=== PATIENT | female | born 1965 | race Caucasian/White ===

== ENCOUNTER 2018-09-02 20:01 | Emergency (ER) | payer OTHER ==
--- NOTE | 2018-09-02 20:51 | RAD REPORT ---
EXAM DESCRIPTION: RAD - Chest Single View - 09/02/2018 8:43 pm CLINICAL HISTORY: Bronchitis, shortness of breath, cough COMPARISON: January 2017 TECHNIQUE: AP portable chest image was obtained 2028 . FINDINGS: No peripheral mass or consolidation. Lung markings are not clearly different from comparis on. Heart and vasculature are normal. No measurable pleural effusion and no pneumothorax. No acute [place] abnormality seen. No acute aortic findings suspected. IMPRESSION: Lung markings are mildly prominent but not clearly different from comparison. No focal consolidation.
[2018-09-02] MEDS ORDERED: IBUPROFEN 400 MG TAB ONE (21:01)
[2018-09-02] MEDS ORDERED: ONDANSETRON 4 MG/2 ML VIAL ONE (21:02)
[2018-09-02] MEDS ORDERED: ACETAMINOPHEN 500 MG TAB ONE (21:02)
[2018-09-02] MEDS ORDERED: NA CHLORIDE 0.9% 2,000 ML ONE (21:02)
[2018-09-02 21:06] LABS: Absolute Lymphocytes (CBC) 0.4 K/uL (0.7-4.9); Absolute Monocytes 0.3 K/uL (0.1-1.3); Absolute Neutrophil 17.4 K/uL (1.8-8.0); Basophils % 0.1 % (0-1.3); Eosinophils % 0.1 % (0-4.4); Hematocrit 42.7 % (36.0-45.0); Lymphocytes % 2.1 % (15.3-44.8); MCH 29.8 pg (27.0-35.0); MCV 88.3 fL (80-100); Monocytes % 1.4 % (3.3-12.3); RBC Red Blood Cell Count 4.84 M/uL (3.86-4.86)
[2018-09-02 21:16] LABS: Potassium 4.2 mmol/L (3.5-5.1)
[2018-09-02 21:42] LABS: Platelet Estimate ADEQ; Urine White Blood Cell Casts OK
[2018-09-02 21:43] LABS: Blood Morphology Comment NOT SEEN (NOT SEEN)
[2018-09-02 21:45] LABS: Urine Bacteria NONE SEEN /HPF (<20); Urine Culture Reflex Order NOT NEEDED
[2018-09-02 21:53] LABS: Urine Blood 2+ (NEG); Urine Glucose NEGATIVE (NEG); Urine Protein NEGATIVE (NEG); Urine Specific Gravity 1.025 (1.005-1.030); Urine pH 5.5 (5.0-7.0)
--- NOTE | 2018-09-03 01:15 | ER ---
Nurse's Notes [facility] Name: Gabriela Cutris Age: 53 yrs Sex: Female : 1965 Arrival Date: 09/02/2018 Time: 20:03 Bed 7 Private MD: Beau Barrett E Diagnosis: Bronchitis, not specified as acute or chronic Presentation: 09/02 20:14 Presenting complaint: Patient states: Diagnosed with bronchitis yesterday by PCP and lp1 began steroids today; States fever of 103 today, aching to general body. Transition of care: patient was not received from another setting of care. Onset of symptoms was September 02, 2018. Risk Assessment: Do you want to hurt yourself or someone else? Patient reports no desire to harm self or others. Initial Sepsis Screen: Does the patient meet any 2 criteria? Temp <36.0*C (96.8*F)) or > 38.3*C (100.9*F). HR > 90 bpm. Yes. Care prior to arrival: None. 20:14 Method Of Arrival: Wheelchair lp1 20:14 Acuity: ANDREW 3 lp1 21:17 Initial Sepsis Screen: Does the patient have a suspected source of infection? Yes: tl2 Productive cough/pneumonia. Triage Assessment: 21:17 Respiratory: Onset: The symptoms/episode began/occurred yesterday, the patient has mild tl2 shortness of breath. [facility]: 20:16 LMP N/A - Irregular menses lp1 Historical: - Allergies: 20:18 Clindamycin; lp1 20:18 VANCOMYCIN AND DERIVATIVES; lp1 20:18 Augmentin; lp1 20:18 Anoro Ellipta; lp1 20:18 Codeine; lp1 20:18 IV contrast; lp1 20:18 Levaquin; lp1 20:18 Talwin; lp1 - Home Meds: 20:18 levothyroxine oral [Active]; Methylprednisolone Oral [Active]; Azithromycin Oral lp1 [Active]; albuterol sulfate 90 mcg/actuation Inhl HFAA 1 puff every 4-6 hours [Active]; albuterol sulfate 2.5 mg /3 mL (0.083 %) Inhl nebu 3 mL every 6 hours [Active]; Symbicort 160-4.5 mcg/actuation inhalation HFAA 2 puffs 2 times per day [Active]; - PMHx: 20:18 COPD; Hypothyroidism; Osteoarthritis; lp1 - PSHx: 20:18 back surgery; ; Tracheotomy; lp1 - Immunization history:: Adult Immunizations up to date. - Social history:: Smoking status: Patient/guardian denies using tobacco. - Ebola Screening: : No symptoms or risks identified at this time. Screenin:19 Abuse screen: Denies threats or abuse. Denies injuries from another. Nutritional lp1 screening: No deficits noted. Tuberculosis screening: No symptoms or risk factors identified. 21:17 Fall Risk None identified. tl2 Assessment: 20:50 General: Appears in no apparent distress. uncomfortable, Behavior is calm, cooperative, tl2 appropriate for age. Pain: Complains of pain in body aches. Neuro: Level of Consciousness is awake, alert, obeys commands, Oriented to person, place, time, situation. Cardiovascular: Denies chest pain, Rhythm is sinus tachycardia. Respiratory: Airway is patent Respiratory effort is even, unlabored, Respiratory pattern is regular, symmetrical, Breath sounds are clear bilaterally. GI: Reports nausea. : No signs and/or symptoms were reported regarding the genitourinary system. Derm: Skin is flushed. 21:16 Reassessment: Patient appears in no apparent distress at this time. Patient and/or tl2 family updated on plan of care and expected duration. Pain level reassessed. Patient is alert, oriented x 3, equal unlabored respirations, skin warm/dry/pink. Pt resting, fluids infusing. 22:00 Reassessment: IV in left hand is positional, will attempt to obtain additional access. tl2 22:29 Reassessment: Patient appears in no apparent distress at this time. Patient and/or tl2 family updated on plan of care and expected duration. Pain level reassessed. Patient is alert, oriented x 3, equal unlabored respirations, skin warm/dry/pink. Patient states feeling better. 09/03 00:10 Reassessment: Patient appears in no apparent distress at this time. Patient and/or tl2 family updated on plan of care and expected duration. Pain level reassessed. Patient is alert, oriented x 3, equal unlabored respirations, skin warm/dry/pink. pt verbalized understanding of discharge instructions, need for follow up and prescription usage Patient states feeling better. Patient states symptoms have improved. Vital Signs: 09/02 20:16 BP 120 / 69; Pulse 129; Resp 18; Temp 102.9(O); Pulse Ox 98% on R/A; Weight 127.01 kg; lp1 Height 5 ft. 5 in. (165.10 cm); Pain 8/10; 21:16 BP 125 / 68; Pulse 121; Resp 20; Pulse Ox 96% on R/A; tl2 22:00 BP 131 / 76; Pulse 111; Resp 20; Pulse Ox 95% on R/A; tl2 22:29 BP 118 / 58; Pulse 106; Resp 18; Temp 100(O); Pulse Ox 96% on R/A; tl2 22:57 BP 112 / 51; Pulse 99; Resp 18; Pulse Ox 94% on R/A; tl2 09/03 00:10 BP 112 / 62; Pulse 95; Resp 18; Temp 98.8(O); Pulse Ox 96% on R/A; Pain 3/10; tl2 09/02 20:16 Body Mass Index 46.59 (127.01 kg, 165.10 cm) lp1 ED Course: 09/02 20:03 Patient arrived in ED. am2 20:03 Beau Barrett MD is Private Physician. am2 20:06 Lenin Carrington MD is Attending Physician. tw4 20:15 Triage completed. lp1 20:16 Arm band placed on left wrist. lp1 20:43 Chest Single View XRAY In Process Unspecified. EDMS 21:00 EKG done, by ED staff, reviewed by Lenin Carrington MD. cb2 21:01 Inserted saline lock: 20 gauge in left hand, using aseptic technique. Blood collected. tl2 21:15 Ivon Pizarro, JENNIFER is Primary Nurse. tl2 21:16 Flu Sent. tl2 21:16 Strep Sent. tl2 21:17 Patient has correct armband on for positive identification. Placed in gown. Bed in low tl2 position. Call light in reach. Side rails up X 1. Adult w/ patient. 22:02 Inserted saline lock: 20 gauge in right forearm, using aseptic technique. placed by tl2 abdelrahman Burks. 23:43 Beau Barrett MD is Referral Physician. tw4 09/03 00:10 No provider procedures requiring assistance completed. IV discontinued, intact, tl2 bleeding controlled, No redness/swelling at site. Pressure dressing applied. Administered Medications: 09/02 21:16 Drug: Tylenol 1000 mg Route: PO; tl2 22:00 Follow up: Response: No adverse reaction; Temperature is decreased tl2 21:16 Drug: Motrin 800 mg Route: PO; tl2 22:00 Follow up: Response: No adverse reaction; Temperature is decreased tl2 21:16 Drug: NS 0.9% (30 ml/kg) 30 ml/kg Route: IV; Rate: bolus; Site: left hand; tl2 09/03 00:12 Follow up: IV Status: Completed infusion; IV Intake: 2000ml tl2 Point of Care Testing: Blood Glucose: 09/02 20:50 Blood Glucose: 135 mg/dL; cb2 Ranges: Intake: 09/03 00:12 IV: 2000ml; Total: 2000ml. tl2 Outcome: 09/02 23:44 Discharge ordered by . tw4 09/03 00:10 Discharged to home ambulatory, with family. tl2 Condition: stable Discharge instructions given to patient, family, Instructed on discharge instructions, follow up and referral plans. medication usage, Demonstrated understanding of instructions, follow-up care, medications, Prescriptions given X 1. 00:12 Patient left the ED. tl2 Signatures: Dispatcher [employer] EDMS Pham Wang RN RN lp1 Ivon Pizarro RN RN tl2 Marychuy Edwards Christian cb2 Lenin Carrington MD MD tw4
--- NOTE | 2018-09-03 01:15 | EDPHYS ---
Physician Documentation [facility] Name: Gabriela Curtis Age: 53 yrs Sex: Female : 1965 Arrival Date: 09/02/2018 Time: 20:03 Bed 7 Private MD: Beau Barrett E ED Physician Lenin Carrington HPI: 09/03 01:59 This 53 yrs old Female presents to ER via Wheelchair with complaints of tw4 Fever, Breathing Difficulty, Nausea. 01:59 The patient reports fever, that was measured at 103 degrees Fahrenheit. Onset: The tw4 symptoms/episode began/occurred today. Modifying factors: Recent medications: Zithromax. Associated signs and symptoms: Pertinent positives: cough. Severity of symptoms: At their worst the symptoms were moderate in the emergency department the symptoms are unchanged. The patient has not experienced similar symptoms in the past. 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 LMP N/A - Irregular menses lp1 Historical: - Allergies: 20:18 Clindamycin; lp1 20:18 VANCOMYCIN AND DERIVATIVES; lp1 20:18 Augmentin; lp1 20:18 Anoro Ellipta; lp1 20:18 Codeine; lp1 20:18 IV contrast; lp1 20:18 Levaquin; lp1 20:18 Talwin; lp1 - Home Meds: 20:18 levothyroxine oral [Active]; Methylprednisolone Oral [Active]; Azithromycin Oral lp1 [Active]; albuterol sulfate 90 mcg/actuation Inhl HFAA 1 puff every 4-6 hours [Active]; albuterol sulfate 2.5 mg /3 mL (0.083 %) Inhl nebu 3 mL every 6 hours [Active]; Symbicort 160-4.5 mcg/actuation inhalation HFAA 2 puffs 2 times per day [Active]; - PMHx: 20:18 COPD; Hypothyroidism; Osteoarthritis; lp1 - PSHx: 20:18 back surgery; ; Tracheotomy; lp1 - Immunization history:: Adult Immunizations up to date. - Social history:: Smoking status: Patient/guardian denies using tobacco. - Ebola Screening: : No symptoms or risks identified at this time. ROS: 09/03 01:59 Cardiovascular: Negative for chest pain, palpitations, and edema, Abdomen/GI: Negative tw4 for abdominal pain, nausea, vomiting, diarrhea, and constipation, Back: Negative for injury and pain, MS/Extremity: Negative for injury and deformity, Skin: Negative for injury, rash, and discoloration, Neuro: Negative for headache, weakness, numbness, tingling, and seizure. Constitutional: Positive for fever, Negative for body aches, chills, fatigue, malaise, poor PO intake. Respiratory: Positive for cough, "sounds productive", Negative for dyspnea on exertion, hemoptysis, orthopnea, pleurisy, shortness of breath. Exam: 01:59 Constitutional: This is a well developed, well nourished patient who is awake, alert, tw4 and in no acute distress. Head/Face: Normocephalic, atraumatic. Chest/axilla: Normal chest wall appearance and motion. Nontender with no deformity. No lesions are appreciated. Cardiovascular: Regular rate and rhythm with a normal S1 and S2. No gallops, murmurs, or rubs. Normal PMI, no JVD. No pulse deficits. Respiratory: Lungs have equal breath sounds bilaterally, clear to auscultation and percussion. No rales, rhonchi or wheezes noted. No increased work of breathing, no retractions or nasal flaring. Abdomen/GI: Soft, non-tender, with normal bowel sounds. No distension or tympany. No guarding or rebound. No evidence of tenderness throughout. MS/ Extremity: Pulses equal, no cyanosis. Neurovascular intact. Full, normal range of motion. Neuro: Awake and alert, GCS 15, oriented to person, place, time, and situation. Cranial nerves II-XII grossly intact. Motor strength 5/5 in all extremities. Sensory grossly intact. Cerebellar exam normal. Normal gait. Vital Signs: 09/02 20:16 BP 120 / 69; Pulse 129; Resp 18; Temp 102.9(O); Pulse Ox 98% on R/A; Weight 127.01 kg; lp1 Height 5 ft. 5 in. (165.10 cm); Pain 06/20; 21:16 BP 125 / 68; Pulse 121; Resp 20; Pulse Ox 96% on R/A; tl2 22:00 BP 131 / 76; Pulse 111; Resp 20; Pulse Ox 95% on R/A; tl2 22:29 BP 118 / 58; Pulse 106; Resp 18; Temp 100(O); Pulse Ox 96% on R/A; tl2 22:57 BP 112 / 51; Pulse 99; Resp 18; Pulse Ox 94% on R/A; tl2 09/03 00:10 BP 112 / 62; Pulse 95; Resp 18; Temp 98.8(O); Pulse Ox 96% on R/A; Pain 3/10; tl2 09/02 20:16 Body Mass Index 46.59 (127.01 kg, 165.10 cm) lp1 MDM: 09/02 20:06 Patient medically screened. tw4 09/03 02:03 Differential diagnosis: viral Infection, bacterial infection, bronchitis. Data tw4 reviewed: vital signs, nurses notes. Data interpreted: Pulse oximetry: Interpretation: normal. Test interpretation: by ED physician or midlevel provider: plain radiologic studies. Counseling: I had a detailed discussion with the patient and/or guardian regarding: the historical points, exam findings, and any diagnostic results supporting the discharge/admit diagnosis, the presence of at least one elevated blood pressure reading (>120/80) during this emergency department visit. Special discussion: I discussed with the patient/guardian in detail that at this point there is no indication for admission to the hospital. It is understood, however, that if the symptoms persist or worsen the patient needs to return immediately for re-evaluation. 09/02 20:33 Order name: Basic Metabolic Panel; Complete Time: 23:35 tw4 09/02 23:35 Interpretation: Normal except: NA 135; GFR 58; BUN 20; GLUC 134. tw4 09/02 20:33 Order name: Blood Culture Adult (2) tw4 09/02 20:33 Order name: CBC with Diff; Complete Time: 23:35 tw4 09/02 23:36 Interpretation: Normal except: WBC 18.1; MCV 88.3; VITO% 96.3; LYM% 2.1; MN% 1.4; NEUT A tw4 17.4. 09/02 20:33 Order name: Lactate; Complete Time: 23:35 tw4 09/02 23:36 Interpretation: Normal except. tw4 09/02 20:33 Order name: Lipase; Complete Time: 23:35 tw4 09/02 20:33 Order name: Urine Microscopic Only; Complete Time: 23:35 tw4 09/02 23:37 Interpretation: Normal except: SQEPI 5-10; URBC 5-10. tw4 09/02 20:56 Order name: Flu; Complete Time: 23:35 tw4 09/02 20:56 Order name: Strep; Complete Time: 23:35 tw4 09/02 21:19 Order name: Urine Dipstick--Ancillary (enter results); Complete Time: 23:35 ms 09/02 21:19 Order name: Urine --Ancillary (enter results); Complete Time: 23:35 ms 09/02 21:43 Order name: CBC Smear Scan; Complete Time: 23:35 EDMS 09/02 21:44 Order name: Throat Culture EDMS 09/02 23:21 Order name: Lactate tl2 09/02 20:33 Order name: Chest Single View XRAY; Complete Time: 23:35 tw4 09/02 20:33 Order name: Accucheck; Complete Time: 20:51 tw4 09/02 20:33 Order name: Cardiac monitoring; Complete Time: 20:51 tw4 09/02 20:33 Order name: EKG - Nurse/Tech; Complete Time: 20:51 tw4 09/02 20:33 Order name: IV Saline Lock - Large Bore; Complete Time: 20:51 tw4 09/02 20:33 Order name: Labs collected and sent; Complete Time: 20:51 tw4 09/02 20:33 Order name: O2 Per Protocol; Complete Time: 20:52 tw4 09/02 20:33 Order name: O2 Sat Monitoring; Complete Time: 20:52 tw4 09/02 20:33 Order name: Urine Dipstick-Ancillary (obtain specimen); Complete Time: 21:16 tw4 09/02 23:56 Order name: Lactate Sepsis 2 HR Follow-up EDMS Administered Medications: 09/02 21:16 Drug: Tylenol 1000 mg Route: PO; tl2 22:00 Follow up: Response: No adverse reaction; Temperature is decreased tl2 21:16 Drug: Motrin 800 mg Route: PO; tl2 22:00 Follow up: Response: No adverse reaction; Temperature is decreased tl2 21:16 Drug: NS 0.9% (30 ml/kg) 30 ml/kg Route: IV; Rate: bolus; Site: left hand; tl2 10/24 00:12 Follow up: IV Status: Completed infusion; IV Intake: 2000ml tl2 Point of Care Testing: Blood Glucose: 09/02 20:50 Blood Glucose: 135 mg/dL; cb2 Ranges: Critical Glucose Levels:Adult <50 mg/dl or >400 mg/dl <40 mg/dl or >180 mg/dl Disposition: 09/02/18 23:44 Discharged to Home. Impression: Bronchitis, not specified as acute or chronic. - Condition is Stable. - Discharge Instructions: Bronchospasm, Adult, Acute Bronchitis, [id number]. - Prescriptions for Tessalon Perles 100 mg Oral Capsule - take 1 capsule by ORAL route every 8 hours As needed; 15 capsule. - Family Work Release, Medication Reconciliation Form, Thank You Letter, Antibiotic Education, Prescription Opioid Use form. - Follow up: Beau Barrett MD; When: Upon discharge from the Emergency Department; Reason: If symptoms return, Further diagnostic work-up, Recheck today's complaints, Continuance of care. - Problem is new. - Symptoms have improved. Signatures: Dispatcher [facility] Pham Wang RN RN lp1 Ivon Pizarro RN RN tl2 Lenin Carrington MD MD tw4 Corrections: (The following items were deleted from the chart) 23:37 23:22 Lactate ordered. [facility] 09/03 00:12 09/02 23:44 09/02/2018 23:44 Discharged to Home. Impression: Bronchitis, not specified tl2 as acute or chronic. Condition is Stable. Forms are Medication Reconciliation Form, Thank You Letter, Antibiotic Education, Prescription Opioid Use. Follow up: Beau Barrett; When: Upon discharge from the Emergency Department; Reason: If symptoms return, Further diagnostic work-up, Recheck today's complaints, Continuance of care. Problem is new. Symptoms have improved. tw4
--- NOTE | 2018-09-03 08:26 | EKG ---
Test Date: 2018-09-02 Test Time: 20:45:24 [employer] Supervisor: KALIE MEASUREMENT RESULTS: Intervals: Rate: 123 SC: 176 QRSD: 80 QT: 294 QTc: 420 [place]: P: 9 SC: 176 QRS: 24 T: 24 INTERPRETIVE STATEMENTS: Sinus tachycardia Possible Left atrial enlargement Incomplete right bundle branch block Nonspecific T wave abnormality Abnormal ECG Compared to ECG 01/13/2017 22:38:39 Sinus rhythm no longer present T-wave abnormality still present Electronically Signed On 09-03-18 08:26:05 CDT by Jose Francisco Mckay
== END 2018-09-03 00:12 | disposition home or self-care (01) ==
LOC: ER 20:01
DX: J40 Bronchitis, not specified as acute or chronic (principal); J44.9 Chronic obstructive pulmonary disease, unspecified; E03.9 Hypothyroidism, unspecified; Z88.1 Allergy status to other antibiotic agents; Z88.3 Allergy status to other anti-infective agents; Z88.5 Allergy status to narcotic agent; Z91.041 Radiographic dye allergy status
CPT/HCPCS: 36415; 71045; 80048; 81025; 82962; 83605 ×2; 83690; 85025; 87040 ×2; 87070; 87081; 87804 ×2; 93005; 96360; 96361; 99284; J2405; J7030; 81003; 81015; 96365; 96366

== ENCOUNTER 2019-03-06 11:57 | Emergency (ER) | payer OTHER ==
--- OUTSIDE RECORDS SUMMARY | 2019-03-06 12:00 | XMS REPORT ---
:1965 [facility] Address [address] [place] [address] [place] [address] Care Team Providers Name Role Phone Unavailable Unavailable Unavailable Problems This patient has no known problems. Allergies, Adverse Reactions, Alerts This patient has no known allergies or adverse reactions. Medications This patient has no known medications.
--- NOTE | 2019-03-06 12:38 | RAD REPORT ---
EXAM DESCRIPTION: Vandana De Leon (2 Views)03/06/2019 12:31 pm CLINICAL HISTORY: Cough COMPARISON: August 2018 FINDINGS: The lungs appear clear of acute infiltrate. The heart is normal size IMPRESSION: No acute abnormalities displayed
[2019-03-06] MEDS ORDERED: ALBUTEROL 2.5 MG/3 ML NEB SOL ONE (12:40)
[2019-03-06] MEDS ORDERED: predniSONE 20 MG TAB ONE (12:40)
[2019-03-06] MEDS ORDERED: IPRATROPIUM BROM 0.5MG/2.5ML ONE (12:40)
--- NOTE | 2019-03-06 13:27 | ER ---
Nurse's Notes [facility] [place] Name: Gabriela Curtis Age: 53 yrs Sex: Female : 1965 Arrival Date: 03/06/2019 Time: 11:59 Bed 5 Private MD: Beau Barrett E Diagnosis: Chronic obstructive pulmonary disease, unspecified;Wheezing Presentation: 03/06 12:07 Presenting complaint: Patient states: has had chest cold and runny nose, given Z-pack sv on Saturday, having pain in chest from cough, feels sore, hx of COPD, still has cough, fever one night. Transition of care: patient was not received from another setting of care. Onset of symptoms was February 26, 2019. Risk Assessment: Do you want to hurt yourself or someone else? Patient reports no desire to harm self or others. Initial Sepsis Screen: Does the patient meet any 2 criteria? No. Patient's initial sepsis screen is negative. Does the patient have a suspected source of infection? No. Patient's initial sepsis screen is negative. Care prior to arrival: None. 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 LMP N/A - Post-menopause sv Historical: - Allergies: 12:11 Anoro Ellipta; sv 12:11 Augmentin; sv 12:11 Clindamycin; sv 12:11 Codeine; sv 12:11 IV contrast; sv 12:11 Levaquin; sv 12:11 Talwin; sv 12:11 VANCOMYCIN AND DERIVATIVES; sv 12:11 Methylprednisolone; sv - Home Meds: 12:11 Breo Ellipta 200-25 mcg/dose inhalation dsdv 1 puff once daily [Active]; ProAir HFA 90 sv mcg/actuation inhalation HFAA 1 puff every 4 hours [Active]; albuterol sulfate 2.5 mg /3 mL (0.083 %) Inhl nebu 3 mL every 6 hours [Active]; levothyroxine 88 mcg oral tab once daily [Active]; - PMHx: 12:11 COPD; Hypothyroidism; osteoarthritis; sv - PSHx: 12:11 ; cyst removed from back; sv - Immunization history:: Adult Immunizations Adult Immunizations not up to date. - Social history:: Smoking status: Patient/guardian denies using tobacco. - Ebola Screening: : Patient negative for fever greater than or equal to 101.5 degrees Fahrenheit, and additional compatible Ebola Virus Disease symptoms Patient denies exposure to infectious person Patient denies travel to an Ebola-affected area in the 21 days before illness onset No symptoms or risks identified at this time. Screenin:30 Abuse screen: Denies threats or abuse. Denies injuries from another. Nutritional ss screening: No deficits noted. Tuberculosis screening: Never had TB. Fall Risk None identified. Assessment: 12:30 General: Appears in no apparent distress. Behavior is calm, cooperative, Denies fever. ss Pain: Complains of pain in chest Pain currently is 3 out of 10 on a pain scale. Quality of pain is described as aching, sore. Neuro: Level of Consciousness is awake, alert, obeys commands, Oriented to person, place, time, situation. Cardiovascular: Capillary refill < 3 seconds is brisk in bilateral fingers Patient's skin is warm and dry. Respiratory: Reports shortness of breath on exertion Airway is patent Respiratory effort is even, unlabored, Respiratory pattern is regular, symmetrical, Breath sounds with wheezes bilaterally. GI: Patient currently denies abdominal pain, diarrhea, nausea, vomiting. : No signs and/or symptoms were reported regarding the genitourinary system. EENT: Oral mucosa is moist. Throat is clear. Derm: Skin is intact, is healthy with good turgor, Skin is dry, Skin is pink, warm \T\ dry. normal. Musculoskeletal: Circulation, motion, and sensation intact. Range of motion: intact in all extremities, Swelling absent. 13:15 Reassessment: Patient appears in no apparent distress at this time. Patient and/or ss family updated on plan of care and expected duration. Pain level reassessed. Patient is alert, oriented x 3, equal unlabored respirations, skin warm/dry/pink. Patient states feeling better. Patient states symptoms have improved. Respiratory: Airway is patent Respiratory effort is even, unlabored, Respiratory pattern is regular, symmetrical, Breath sounds are clear bilaterally. Vital Signs: 12:11 BP 148 / 74; Pulse 89; Resp 18; Temp 97.8(O); Pulse Ox 96% on R/A; Weight 136.08 kg; sv Height 5 ft. 5 in. (165.10 cm); Pain 3/10; 12:11 Body Mass Index 49.92 (136.08 kg, 165.10 cm) sv ED Course: 11:59 Patient arrived in ED. rg4 12:00 Beau Barrett MD is Private Physician. rg4 12:09 Triage completed. sv 12:11 Arm band placed on. sv 12:13 Anni Fermin [facility]-C [facility]. kb 12:13 Camilo Ang MD is Attending Physician. kb 12:23 Vida Rucker, JENNIFER is Primary Nurse. ss 12:25 Patient moved to radiology via wheelchair. ls3 12:29 X-ray completed. Patient tolerated procedure well. Patient moved back from radiology. ls3 12:30 Chest Pa And Lat (2 Views) XRAY In Process Unspecified. EDMS 12:30 Patient has correct armband on for positive identification. Bed in low position. Call ss light in reach. 13:39 No provider procedures requiring assistance completed. Patient did not have IV access ss during this emergency room visit. Administered Medications: 12:45 Drug: DuoNeb (3:1) (2.5 mg - 0.5 mg) 3 ml Route: Nebulizer; ss 13:39 Follow up: Response: No adverse reaction; Marked relief of symptoms; Wheezing diminishedss 12:45 Drug: predniSONE 40 mg Route: PO; ss 13:39 Follow up: Response: No adverse reaction; Marked relief of symptoms ss Outcome: 13:26 Discharge ordered by MD. kb 13:39 Discharged to home ambulatory. ss 13:39 Condition: improved 13:39 Discharge instructions given to patient, Instructed on discharge instructions, follow up and referral plans. medication usage, Demonstrated understanding of instructions, follow-up care, medications, Prescriptions given X 1. 13:40 Patient left the ED. ss Signatures: Dispatcher [employer] EDIL Anni Fermin FNP-C FNP-Ckb Verde, Stephanie, RN RN Vida Rucker, Denita Foreman RN rg4 Sid Alfredo ls3
--- NOTE | 2019-03-06 13:27 | EDPHYS ---
Physician Documentation [facility] Name: Gabriela Curtis Age: 53 yrs Sex: Female : 1965 Arrival Date: 03/06/2019 Time: 11:59 Bed 5 Private MD: Beau Barrett E ED Physician Camilo Ang HPI: 03/06 13:19 This 53 yrs old Female presents to ER via Ambulatory with complaints of Chest kb Congestion, Runny Nose, Cough. 13:19 The patient or guardian reports cough, that is intermittent, described as mild, with no kb sputum, difficulty breathing. Onset: The symptoms/episode began/occurred last week. Severity of symptoms: At their worst the symptoms were moderate, in the emergency department the symptoms are unchanged. Modifying factors: The symptoms are alleviated by nothing, the symptoms are aggravated by nothing. Associated signs and symptoms: The patient has no apparent associated signs or symptoms. The patient has not experienced similar symptoms in the past. The patient has not recently seen a physician. IRONER: 12:11 LMP N/A - Post-menopause sv Historical: - Allergies: 12:11 Anoro Ellipta; sv 12:11 Augmentin; sv 12:11 Clindamycin; sv 12:11 Codeine; sv 12:11 IV contrast; sv 12:11 Levaquin; sv 12:11 Talwin; sv 12:11 VANCOMYCIN AND DERIVATIVES; sv 12:11 Methylprednisolone; sv - Home Meds: 12:11 Breo Ellipta 200-25 mcg/dose inhalation dsdv 1 puff once daily [Active]; ProAir HFA 90 sv mcg/actuation inhalation HFAA 1 puff every 4 hours [Active]; albuterol sulfate 2.5 mg /3 mL (0.083 %) Inhl nebu 3 mL every 6 hours [Active]; levothyroxine 88 mcg oral tab once daily [Active]; - PMHx: 12:11 COPD; Hypothyroidism; osteoarthritis; sv - PSHx: 12:11 ; cyst removed from back; sv - Immunization history:: Adult Immunizations Adult Immunizations not up to date. - Social history:: Smoking status: Patient/guardian denies using tobacco. - Ebola Screening: : Patient negative for fever greater than or equal to 101.5 degrees Fahrenheit, and additional compatible Ebola Virus Disease symptoms Patient denies exposure to infectious person Patient denies travel to an Ebola-affected area in the 21 days before illness onset No symptoms or risks identified at this time. ROS: 13:17 Constitutional: Negative for fever, chills, and weight loss, ENT: Negative for injury, kb pain, and discharge, Neck: Negative for injury, pain, and swelling, Cardiovascular: Negative for chest pain, palpitations, and edema, Abdomen/GI: Negative for abdominal pain, nausea, vomiting, diarrhea, and constipation, MS/Extremity: Negative for injury and deformity, Skin: Negative for injury, rash, and discoloration, Neuro: Negative for headache, weakness, numbness, tingling, and seizure. 13:17 Respiratory: Positive for cough, with no reported sputum, shortness of breath, wheezing, Negative for hemoptysis, orthopnea, pleurisy. Exam: 13:17 Constitutional: This is a well developed, well nourished patient who is awake, alert, kb and in no acute distress. Head/Face: Normocephalic, atraumatic. ENT: Nares patent. No nasal discharge, no septal abnormalities noted. Tympanic membranes are normal and external auditory canals are clear. Oropharynx with no redness, swelling, or masses, exudates, or evidence of obstruction, uvula midline. Mucous membranes moist. Neck: Trachea midline, no thyromegaly or masses palpated, and no cervical lymphadenopathy. Supple, full range of motion without nuchal rigidity, or vertebral point tenderness. No Meningismus. Chest/axilla: Normal chest wall appearance and motion. Nontender with no deformity. No lesions are appreciated. Cardiovascular: Regular rate and rhythm with a normal S1 and S2. No gallops, murmurs, or rubs. Normal PMI, no JVD. No pulse deficits. Abdomen/GI: Soft, non-tender, with normal bowel sounds. No distension or tympany. No guarding or rebound. No evidence of tenderness throughout. Back: No spinal tenderness. No costovertebral tenderness. Full range of motion. Skin: Warm, dry with normal turgor. Normal color with no rashes, no lesions, and no evidence of cellulitis. MS/ Extremity: Pulses equal, no cyanosis. Neurovascular intact. Full, normal range of motion. Neuro: Awake and alert, GCS 15, oriented to person, place, time, and situation. Cranial nerves II-XII grossly intact. Motor strength 5/5 in all extremities. Sensory grossly intact. Cerebellar exam normal. Normal gait. 13:17 Respiratory: the patient does not display signs of respiratory distress, Respirations: normal, Breath sounds: wheezing: expiratory that is moderate, is heard diffusely. Vital Signs: 12:11 BP 148 / 74; Pulse 89; Resp 18; Temp 97.8(O); Pulse Ox 96% on R/A; Weight 136.08 kg; sv Height 5 ft. 5 in. (165.10 cm); Pain 3/10; 12:11 Body Mass Index 49.92 (136.08 kg, 165.10 cm) sv MDM: 12:13 Patient medically screened. kb 13:19 Data reviewed: vital signs, nurses notes. Data interpreted: Pulse oximetry: on room air kb is 96 %. Interpretation: normal. ED course: Pt is getting nebulizer treatment now. States she feels like she is breathing better now. 13:25 Counseling: I had a detailed discussion with the patient and/or guardian regarding: the kb historical points, exam findings, and any diagnostic results supporting the discharge/admit diagnosis, radiology results, the need for outpatient follow up, a family practitioner, to return to the emergency department if symptoms worsen or persist or if there are any questions or concerns that arise at home. Response to treatment: the patient's symptoms have markedly improved after treatment. ED course: Pt feeling better and wheezing is greatly improved. Pt has nebs and inhalers at home. Will discharge home to follow up with PCP. Pt to return for worsening symptoms. . 03/06 12:15 Order name: Chest Pa And Lat (2 Views) XRAY; Complete Time: 12:40 kb Administered Medications: 12:45 Drug: DuoNeb (3:1) (2.5 mg - 0.5 mg) 3 ml Route: Nebulizer; ss 13:39 Follow up: Response: No adverse reaction; Marked relief of symptoms; Wheezing diminishedss 12:45 Drug: predniSONE 40 mg Route: PO; ss 13:39 Follow up: Response: No adverse reaction; Marked relief of symptoms ss Disposition: 17:14 Co-signature as Attending Physician, Camilo Ang MD. ma2 Disposition: 03/06/19 13:26 Discharged to Home. Impression: Chronic obstructive pulmonary disease, unspecified, Wheezing. - Condition is Stable. - Discharge Instructions: Chronic Obstructive Pulmonary Disease. - Prescriptions for Prednisone 20 mg Oral Tablet - take 1 tablet by ORAL route once daily for 5 days; 5 tablet. - Medication Reconciliation Form, Thank You Letter, Antibiotic Education, Prescription Opioid Use form. - Follow up: Emergency Department; When: As needed; Reason: Worsening of condition. Follow up: Private Physician; When: 2 - 3 days; Reason: Recheck today's complaints, Continuance of care, Re-evaluation by your physician. Signatures: Dispatcher [employer] EDMS Anni Fermin, CARLOS MANUEL-C Lizz Silverman RN RN sv Vida Rucker RN RN ss Camilo Ang MD MD ma2 Corrections: (The following items were deleted from the chart) 13:40 13:26 03/06/2019 13:26 Discharged to Home. Impression: Chronic obstructive pulmonary ss disease, unspecified; Wheezing. Condition is Stable. Forms are Medication Reconciliation Form, Thank You Letter, Antibiotic Education, Prescription Opioid Use. Follow up: Emergency Department; When: As needed; Reason: Worsening of condition. Follow up: Private Physician; When: 2 - 3 days; Reason: Recheck today's complaints, Continuance of care, Re-evaluation by your physician. kb
== END 2019-03-06 13:40 | disposition home or self-care (01) ==
LOC: ER 11:57
DX: J44.9 Chronic obstructive pulmonary disease, unspecified (principal); E03.9 Hypothyroidism, unspecified; Z88.6 Allergy status to analgesic agent; Z88.3 Allergy status to other anti-infective agents
CPT/HCPCS: 71046; 94640; 99284; J7512